=== PATIENT | female | born 1965 | race Caucasian/White ===

== ENCOUNTER 2021-01-28 21:09 | Emergency (ER) | payer OTHER ==
[~2021-01-28] VITALS: Ht 165.1 cm; Wt 80.0 kg
--- NOTE | 2021-01-28 21:14 | PHYS DOC ---
Past History Past Medical History: Arthritis, Fibromyalgia General Adult HPI: HPI: ".. I was going down stairs...and missed the last step..and twisted or stepped wrong.. on my right ankle and foot.." Patient is a 55 year old female who presents with above hx and complaints of Rt. foot injury. Distal neurovascular appears to be equal to left foot. Positive foot squeeze. Positive pain on percussion of malleolus. Arch area is also tender. Achilles tendon appears to be stable.. Patient localizes pain to upper midfoot and ankle. No upper leg tenderness. Can do straight leg lift. Patient states she has been unable to bear full weight on right foot and ankle because of pain. Patient denies previous a significant injury to right foot and ankle. No recent travel. No history immunosuppression. Does have a history of fibromyalgia. No history recent travel. No specific ill contacts. Review of Systems: Review of Systems: Constitutional: Denies fever or chills Eyes: Denies change in visual acuity HENT: Denies nasal congestion or sore throat Respiratory: Denies cough or shortness of breath Cardiovascular: Denies chest pain or edema GI: Denies abdominal pain, nausea, vomiting, bloody stools or diarrhea : Denies dysuria Musculoskeletal: Complains of injury of right foot and ankle Integument: Denies rash Neurologic: Denies headache, focal weakness or sensory changes Endocrine: Denies polyuria or polydipsia Lymphatic: Denies swollen glands Psychiatric: Denies depression or anxiety Family History: Family History: Noncontributory to presentation Current Medications: Current Meds: See nursing for home meds Allergies: Allergies: Allergic to muscle relaxers-sedation Physical Exam: PE: Constitutional: Moderate acute distress, non-toxic appearance. [] HENT: Normocephalic, atraumatic, bilateral external ears normal, oropharynx moist, no oral exudates, nose normal. [] Eyes: PERRLA, EOMI, conjunctiva normal, no discharge. [] Neck: Normal range of motion, no tenderness, supple, no stridor. [] Cardiovascular:Heart rate regular rhythm, no murmur [] Lungs & Thorax: Bilateral breath sounds equal apex with scattered wheezes on auscultation [] Abdomen: Bowel sounds normal, soft, no tenderness, no masses, no pulsatile masses. [] Skin: Warm, dry, no erythema, no rash. [] Back: No tenderness, no CVA tenderness. [] Extremities: No tenderness, no cyanosis, no clubbing, ROM intact, no edema. Except findings in right foot and ankle. Neurologic: Alert and oriented X 3, normal motor function, normal sensory function, no focal deficits noted. [] Psychologic: Affect normal, judgement normal, mood normal. [] EKG: EKG: [] Radiology/Procedures: Radiology/Procedures: [][address] [address] IMAGING REPORT Signed PATIENT: MOLLY CHRISTINA ACCOUNT: [id number] : 1965 LOCATION: ER AGE: 55 SEX: F EXAM STATUS: REG ER ORD. PHYSICIAN: GIANNI JEROME MD REASON: steps injury PROCEDURE: FOOT RIGHT 3V XR EXAM OF ANKLE_RIGHT 3VIEWS, XR FOOT_RIGHT 3 VIEWS History: Reason: steps injury / Spl. Instructions: / History: . Pain Technique: 3 views right ankle and 3 views right foot Comparison: None. Findings: No dislocation. Symmetric ankle mortise. No acute fracture. Plantar calcaneal spur. Normal alignment of the foot. Mild ankle DJD. Impression: 1. No acute osseous abnormality. Electronically signed by: Jaguar Walsh DO (01/28/2021 11:23 PM) [facility] DICTATED AND SIGNED BY: JAGUAR WALSH DO DATE: 01/28/21 5668 CC: GIANNI JEROME MD; NON,STAFF ~[facility]0 0 Heart Score: C/O Chest Pain: N/A Risk Factors: Risk Factors: DM, Current or recent (<one month) smoker, HTN, HLP, family hi story of CAD, obesity. Risk Scores: Score 0 - 3: 2.5% MACE over next 6 weeks - Discharge Home Score 4 - 6: 20.3% MACE over next 6 weeks - Admit for Clinical Observation Score 7 - 10: 72.7% MACE over next 6 weeks - Early Invasive Strategies Course & Med Decision Making: Course & Med Decision Making Pertinent Labs and Imaging studies reviewed. (See chart for details) Esequiel wrap placed. Patient elevate. Apply ice and rest. Take Tylenol and ibuprofen as needed for pain. Follow-up primary care. No improvement have repeat x-ray in 2 weeks. Consider follow-up orthopedics at [facility]. Return if any concerns. The distal neurovascular appears to be intact after application of splint. Impression: 1. Sprain/strain right foot and ankle [] Dragon Disclaimer: Dragon Disclaimer: This electronic medical record was generated, in whole or in part, using a voice recognition dictation system. Departure Departure: Referrals: NON,STAFF (PCP) Emily Disclaimer This chart was dictated in whole or in part using Voice Recognition software in a busy, high-work load, and often noisy Emergency Department environment. It may contain unintended and wholly unrecognized errors or omissions. GIANNI JEROME MD Jan 28, 2021 21:14
[2021-01-28 21:52] VITALS: BP 162/100
[2021-01-28] MEDS ORDERED: HYDROcodon/IBUPROFEN 7.5/200MG 1 TAB TABLET PO ONE (22:00)
--- NOTE | 2021-01-28 23:26 | RAD ---
XR EXAM OF ANKLE_RIGHT 3VIEWS, XR FOOT_RIGHT 3 VIEWS History: Reason: steps injury / Spl. Instructions: / History: . Pain Technique: 3 views right ankle and 3 views right foot Comparison: None. Findings: No dislocation. Symmetric ankle mortise. No acute fracture. Plantar calcaneal spur. Normal alignment of the foot. Mild ankle DJD. Impression: 1. No acute osseous abnormality. Electronically signed by: Jaguar Richards DO (01/28/2021 11:23 PM) [facility]
== END 2021-01-29 00:54 | disposition home or self-care (01) ==
LOC: ER 21:09
DX: S93.601A Unspecified sprain of right foot, initial encounter (principal); S93.401A Sprain of unspecified ligament of right ankle, initial encounter; M19.90 Unspecified osteoarthritis, unspecified site; X50.1XXA Overexertion from prolonged static or awkward postures, initial encounter; Y93.89 Activity, other specified; Y92.89 Other specified places as the place of occurrence of the external cause; Y99.8 Other external cause status
CPT/HCPCS: 73610; 73630; 99284